=== PATIENT | female | born 1975 | race Two or more races ===

== ENCOUNTER → 2016-10-01 | Emergency (ER) | payer SELFPAY | END | disposition disaster alternative care site (69) | LOC: GAMB 23:06 | DX: E10.9 Type 1 diabetes mellitus without complications (principal) ==

== ENCOUNTER 2017-02-08 21:30 | Emergency (ER) | payer SELFPAY ==
--- NOTE | ~2017-02-08 | ER ---
PATIENT'S NAME: CURTIS HUANG [facility] AGE: 41 Y [address] ROOM: [place] [address] LOCATION: [facility] ADMIT DATE: 02/08/2017 ER/Outpatient Report DISCHARGE DATE: 02/08/2017 FAMILY PHYSICIAN: Erica Nguyen MD ATTENDING PHYSICIAN: Josh Landa Time of Arrival: 2133 hours. Time of Exam: 2133 hours. CHIEF COMPLAINT: Right flank pain. HISTORY OF PRESENT ILLNESS: The patient states she has had right flank and back pain for the past 24 hours. She has been nauseated, but no vomiting. Did have diarrhea stool about 0.5 hour prior to arrival. Denies having fever or chills. Does have pain with urination, but not frequency of urination. She has had a decreased appetite. States her blood sugars have been running high. She denies having history of problems like these before. Has not had any injury in the last 24 hours. She did fall approximately 2 weeks ago, but did not have any injury or pain after that fall. ALLERGIES: NO KNOWN ALLERGIES. CURRENT MEDICATIONS: Metformin. PAST MEDICAL HISTORY: Gub-bmxtlhd-exqdrzwwr diabetes. PAST SURGERIES: Cholecystectomy and . Last period was in beginning of January. SOCIAL HISTORY: Denies use of tobacco, drugs, or alcohol. Presents to the ER accompanied by family. PRIMARY CARE PHYSICIAN: Erica Nguyen MD. REVIEW OF SYSTEMS: All negative other than those mentioned in the HPI. PATIENT'S NAME: CURTIS HUANG [facility] AGE: 41 Y [address] ROOM: [place] [address] LOCATION: [facility] ADMIT DATE: 02/08/2017 ER/Outpatient Report DISCHARGE DATE: 02/08/2017 FAMILY PHYSICIAN: Erica Nguyen MD ATTENDING PHYSICIAN: Josh Landa PHYSICAL EXAMINATION: VITAL SIGNS: She weighed 81 kg. Her blood pressure 133/88, pulse of 103, respirations 20, temperature of 99 tympanic, and O2 saturation was 98% on room air. GENERAL: She is awake, alert, and oriented x4. SKIN: [place], warm, and dry. RESPIRATIONS: Even and nonlabored. Lung sounds were clear throughout. HEART: Regular rate and rhythm. ABDOMEN: Soft, nondistended. Bowel sounds are present. She does have tenderness in the right CVA area. EMERGENCY DEPARTMENT COURSE: Saline lock was initiated. She was given Zofran 4 mg IV and Toradol 15 mg IV. Lab work was completed. Lactate came back at 3. Fluids of normal saline were started at a wide open rate. CBC shows white count of 12.2, hemoglobin is 10, with hematocrit of 32.5, and ANC is 6.2. Chem Panel: Sodium is 139, potassium is 3.5, chloride is 107, and her glucose is 226. Her Accu-Chek was 237. BUN is 6 with a creatinine of 0.6. GFR was greater than 90. Procalcitonin was negative. Clean-catch UA was obtained shows 100 leukocytes. Micro showed 10-20 white blood cells with many bacteria. The patient was reviewed with Dr. Landa. IMPRESSION: Pyelonephritis. PLAN: The patient was given 1 g of Rocephin. Will be allowed to go home. Rest. Increase her fluids. Tylenol or ibuprofen as needed for discomfort. Prescription was written for Cipro 500 mg b.i.d. for 7 days. If her symptoms do not improve in the next 2 to 3 days, she needs to follow up with Dr. Erica Nguyen or return to the ER. She and her family verbalized understanding. CAITLYN GILLILAND APRN FOR DO LEONEL GOLDBERG/seamus /[id number] d: 02/09/17 0054 t: 02/11/17 0644, OUTPATIENT REPORT
[2017-02-08 21:55] LABS: BASOPHIL % 0.3 %; EOSINOPHIL # 0.5 K/uL (0.0-0.5); HEMATOCRIT 32.5 % (33.0-46.0); IMMATURE GRANULOCYTE % 0.2 %; LYMPHOCYTE # 4.8 K/uL (0.8-4.0); LYMPHOCYTE % 38.9 %; MCH 21.2 pg (27.0-34.0); MCHC 30.8 gm/dL (32.0-36.5); MONOCYTE # 0.7 K/uL (0.0-1.0); MONOCYTE % 5.5 %; MPV 9.9 fl (9.4-12.4); NEUTROPHIL # (ANC) 6.2 K/uL (1.8-7.8); NEUTROPHIL % 51.1 %; NRBC % 0 /100WBC (0-0.00); PLATELET COUNT 577 K/uL (150-450); RBC 4.71 M/uL (3.50-5.50); RDW-CV 19.9 % (11.9-14.6); WBC 12.2 K/uL (4.0-11.0)
[2017-02-08 21:57] LABS: BILIRUBIN URINE NEGATIVE (NEGATIVE); BLOOD URINE NEGATIVE /UL (NEGATIVE); COLOR URINE STRAW (YELLOW); GLUCOSE URINE NEGATIVE (NEGATIVE); KETONE URINE NEGATIVE (NEGATIVE); LEUKOCYTES URINE 100 /UL (NEGATIVE); NITRITE URINE NEGATIVE (NEGATIVE); PROTEIN URINE NEGATIVE (NEGATIVE); SPEC GRAVITY URINE 1.005 (1.003-1.035); TURBIDITY URINE CLEAR (CLEAR); UROBILINOGEN URINE NORMAL (NORMAL)
[2017-02-08 22:10] LABS: BACTERIA URINE MANY (NEGATIVE); RBC URINE 0-2 #/HPF (NEGATIVE)
[2017-02-08 22:11] LABS: MUCUS URINE 1+ (NEGATIVE)
[2017-02-08 22:14] LABS: ALBUMIN 3.7 gm/dL (3.5-5.0); ALK PHOS 101 IU/L (33-138); ALT 67 IU/L (12-78); ANION GAP 12.5 (10.0-19.0); AST 40 IU/L (10-40); BLOOD UREA NITROGEN 6 mg/dL (6-24); CALCIUM 8.7 mg/dL (8.5-10.5); CHLORIDE 107 mMol/L (96-110); CO2 23 mMol/L (22-32); CREATININE 0.6 mg/dL (0.5-1.1); POTASSIUM 3.5 mMol/L (3.7-5.1); SODIUM 139 mMol/L (135-145); TOTAL BILIRUBIN 0.4 mg/dL (0.0-1.5); TOTAL PROTEIN 7.7 g/dL (6.0-8.4)
== END 2017-02-08 22:58 | disposition disaster alternative care site (69) ==
LOC: GMED 21:30
PROVIDERS: Nurse Practitioner Family
DX: N12 Tubulo-interstitial nephritis, not specified as acute or chronic (principal); E11.9 Type 2 diabetes mellitus without complications; Z90.49 Acquired absence of other specified parts of digestive tract; Z79.84 Long term (current) use of oral hypoglycemic drugs; Z98.890 Other specified postprocedural states
CPT/HCPCS: J0696; J1885; J2405; J7030

== ENCOUNTER → 2017-02-19 | Outpatient (CLI) | payer SELFPAY | END | disposition disaster alternative care site (69) | LOC: GRAD 11:00 | DX: R10.9 Unspecified abdominal pain (principal); J84.10 Pulmonary fibrosis, unspecified; Z90.49 Acquired absence of other specified parts of digestive tract ==